=== PATIENT | male | born 1990 | race Caucasian/White ===

== ENCOUNTER 2019-09-27 15:25 | Emergency (ER) | payer SELFPAY ==
[~2019-09-27] VITALS: Ht 182.8 cm; Wt 75.0 kg
--- NOTE | 2019-09-27 15:38 | ED General ---
General Stated Complaint: WASP STING STATES ALLERGIC History of Present Illness Date Seen by Provider: Sep 27, 2019 Time Seen by Provider: 15:32 Initial Comments 29-year-old male presents after being stung by wasp on his left forearm approximately 20 minutes ago. He reports at age 6 he had an allergic reaction to wasp sting. He does not remember being stung by wasps since then. He is denying a rash, shortness of breath, swelling, or difficulty speaking. He has not taken any medications. He's never had to carry an EpiPen. Last tetanus shot was one year ago. Timing/Duration: 1/2 Hour Severity: Mild Associated Systoms: Denies Symptoms Allergies and Home Medications Allergies Coded Allergies: No Known Drug Allergies (Unverified , 09/27/19) Patient Home Medication List Home Medication List Reviewed: Yes Review of Systems Review of Systems Constitutional: no symptoms reported, see HPI Skin: see HPI, lesions (wasp sting left forearm) All Other Systems Reviewed Negative Unless Noted: Yes Past Puaevpi-Uhjitw-Uiaisn Hx Past Med/Social Hx: Reviewed Nursing Past Med/Soc Hx Patient Social History Recent Foreign Travel: No Contact w/Someone Who Travel: No Physical Exam Vital Signs Vital Signs - First Documented 09/27/19 15:35 Temp 36.7 Pulse 94 Resp 18 B/P (MAP) 130/68 (88) O2 Delivery Room Air Capillary Refill : Height, Weight, BMI Height: '" Weight: lbs. oz. kg; BMI Method: General Appearance: No Apparent Distress, WD/WN HEENT: PERRL/EOMI, TMs Normal, Normal ENT Inspection, Pharynx Normal Respiratory: Chest Non Tender, Lungs Clear, Normal Breath Sounds, No Respiratory Distress Cardiovascular: Regular Rate, Rhythm, No Edema, No Murmur, Normal Peripheral Pulses Gastrointestinal: Normal Bowel Sounds, Non Tender, Soft Extremity: Normal Capillary Refill, Normal Inspection, Normal Range of Motion, Non Tender, No Calf Tenderness, Other (no erythema, swelling or tenderness at site of sting on left forearm.) Neurologic/Psychiatric: Alert, Oriented x3, No Motor/Sensory Deficits, Normal Mood/Affect Skin: Normal Color, Warm/Dry Progress/Results/Core Measures Suspected Sepsis SIRS Temperature: Pulse: Respiratory Rate: Blood Pressure / Mean: Results/Orders My Orders Orders - [facility] Diphenhydramine Tablet (Benadryl Tablet) (09/27/19 15:45) Famotidine Tablet (Pepcid Tablet) (09/27/19 15:45) Medications Given in ED Current Medications Medications Dose Ordered Sig/Yong Route Start Time Stop Time Status Last Admin Dose Admin Diphenhydramine HCl 25 mg ONCE ONCE PO 09/27/19 15:45 09/27/19 15:46 DC 09/27/19 16:14 25 MG Famotidine 20 mg ONCE ONCE PO 09/27/19 15:45 09/27/19 15:46 DC 09/27/19 16:14 20 MG Vital Signs/I&O 09/27/19 15:35 Temp 36.7 Pulse 94 Resp 18 B/P (MAP) 130/68 (88) O2 Delivery Room Air Capillary Refill : Progress Note : Time: 15:32 Progress Note Patient seen and evaluated will give Benadryl 25 mg and Pepcid 20 mg orally. An monitor. 1620 patient has no rash, tongue, lip or throat swelling, and no complaints at this time. Discharge instructions and return precautions reviewed with him. All questions answered. Departure Impression Primary Impression: Wasp sting Qualified Codes: T63.461A - Toxic effect of venom of wasps, accidental (unintentional), initial encounter Disposition: 01 HOME, SELF-CARE Condition: Improved Departure-Patient Inst. Decision time for Depature: 16:20 Referrals: NO,LOCAL PHYSICIAN (PCP/Family) Primary Care Physician Patient Instructions: Insect Bites and Stings (DC) Add. Discharge Instructions: Wash area with soap and water, apply triple antibiotic ointment as needed. You may take Benadryl 25 mg every 8 hours, Pepcid 20 mg every 12 hours. Use Zyrtec, Benadryl and Pepcid immediately after wasp stings. Follow up with Primary Care if symptoms worsen. Return to emergency department if difficulty breathing, swelling in your throat, tongue or lips, or new concerns. [facility] Sep 27, 2019 15:38
[2019-09-27] MEDS ORDERED: diphenhydrAMINE 25 MG TAB (BENADRYL) PO ONE (15:45)
[2019-09-27] MEDS ORDERED: FAMOTIDINE 20 MG (PEPCID) TABLET PO ONE (15:45)
[2019-09-27 16:47] VITALS: BP 110/66
== END 2019-09-27 16:49 | disposition home or self-care (01) ==
LOC: ER 15:28
DX: T63.461A Toxic effect of venom of wasps, accidental (unintentional), initial encounter (principal)
CPT/HCPCS: 99283